=== PATIENT | male | born 2000 | race Caucasian/White ===

== ENCOUNTER 2019-02-23 17:56 | Inpatient (IN) | payer MEDICAID ==
[2019-02-23] MEDS: HYDROmorphONE 1 MG/ML SYG IV (19:04)
[2019-02-23] MEDS: ONDANSETRON 4 MG INJ IV (19:04)
[2019-02-23] MEDS: SOD CHLORIDE 0.9% 1,000 ML IV (19:04)
[2019-02-23 19:06] LABS: ADD MAN DIFF? NO
[2019-02-23 19:10] LABS: BASOPHILS % 0.1 % (0.0-2.0); EOSINOPHILS # 0.1 10^3/ul (0.0-0.5); EOSINOPHILS % 0.3 % (0.0-7.0); HEMATOCRIT 45.1 % (42.0-52.0); HEMOGLOBIN 14.5 g/dl (14.0-18.0); LYMPHOCYTES # 1.5 10^3/ul (0.8-2.9); LYMPHOCYTES % 10.5 % (18.0-55.0); MEAN CORPUSCULAR HEMOGLOBIN 27.8 pg (29.0-33.0); MEAN CORPUSCULAR HGB CONC 32.2 g/dl (32.0-37.0); MEAN CORPUSCULAR VOLUME 86.4 fl (72.0-104.0); MEAN PLATELET VOLUME 8.7 fl (7.4-10.4); MONOCYTES % 6.6 % (0.0-13.0); NEUTROPHIL # 11.7 10^3/ul (1.6-7.5); NEUTROPHILS % 82.2 % (30.0-74.0); PLATELET COUNT 393 10^3/UL (140-415); RED BLOOD COUNT 5.22 10^6/ul (4.70-6.10); RED CELL DISTRIBUTION WIDTH 12.4 % (11.5-14.5)
[2019-02-23 19:10] LABS: WHITE BLOOD COUNT 14.3 10^3/ul (4.8-10.8)
[2019-02-23 19:31] LABS: ALANINE AMINOTRANSFERASE 51 IU/L (13-69); ALBUMIN 4.7 g/dl (3.3-4.9); ALBUMIN/GLOBULIN RATIO 1.23; ALKALINE PHOSPHATASE 83 IU/L (42-121); ANION GAP 9 (5-13); ASPARTATE AMINO TRANSFERASE 26 IU/L (15-46); BILIRUBIN,INDIRECT 0.6 mg/dl (0-1.1); BILIRUBIN,TOTAL 0.6 mg/dl (0.2-1.3); BLOOD UREA NITROGEN 13 mg/dl (7-20); CALCIUM 10.1 mg/dl (8.4-10.2); CARBON DIOXIDE 32 mmol/L (21-31); CHLORIDE 99 mmol/L (97-110); CREATINE KINASE 70 IU/L (23-200); CREATININE 0.91 mg/dl (0.61-1.24); Estimated GFR > 60 mL/min (>60); GLUCOSE 95 mg/dl (70-220); MAGNESIUM 2.2 mg/dl (1.7-2.5); PHOSPHORUS 4.3 mg/dl (2.5-4.9); POTASSIUM 3.8 mmol/L (3.5-5.1); SODIUM 140 mmol/L (135-144); TOTAL PROTEIN 8.5 g/dl (6.1-8.1)
[2019-02-23 19:34] LABS: C-REACTIVE PROTEIN 1.3 mg/dl (0.0-0.9)
[2019-02-23 20:14] LABS: ERYTHROCYTE SEDIMENTATION RATE 30 mm/Hr (0-15)
[2019-02-23] MEDS ORDERED: ACETAMINOPHEN 325 MG TAB PO ×2 (22:00)
[2019-02-23] MEDS ORDERED: NACL 0.9% 3 ML SYG IV (22:00)
[2019-02-23] MEDS ORDERED: BISACODYL (EC) 5 MG TAB PO (22:00)
[2019-02-23] MEDS ORDERED: ONDANSETRON 4 MG INJ IV (22:00)
[2019-02-23] MEDS ORDERED: DOCUSATE SODIUM 100 MG CAP PO (22:00)
[2019-02-23 22:05] LABS: INR 0.96; PROTIME 12.9 Sec (11.9-14.9)
[2019-02-23 22:06] LABS: PARTIAL THROMBOPLASTIN TIME 31.3 Sec (23.0-35.0)
[2019-02-24] MEDS: SOD CHLORIDE 0.9% 1,000 ML IV ×2 (00:10→11:48)
[2019-02-24] MEDS: morphine 2 MG INJ IV (00:10)
[2019-02-24] MEDS: HYDROCODONE/APAP (5/325) TAB PO (00:26)
[2019-02-24 05:32] LABS: ADD MAN DIFF? NO
[2019-02-24 05:36] LABS: BASOPHILS % 0.1 % (0.0-2.0); EOSINOPHILS # 0.1 10^3/ul (0.0-0.5); EOSINOPHILS % 0.7 % (0.0-7.0); HEMATOCRIT 42.6 % (42.0-52.0); HEMOGLOBIN 13.8 g/dl (14.0-18.0); LYMPHOCYTES # 2.1 10^3/ul (0.8-2.9); LYMPHOCYTES % 15.7 % (18.0-55.0); MEAN CORPUSCULAR HEMOGLOBIN 28.2 pg (29.0-33.0); MEAN CORPUSCULAR HGB CONC 32.4 g/dl (32.0-37.0); MEAN CORPUSCULAR VOLUME 87.1 fl (72.0-104.0); MEAN PLATELET VOLUME 8.8 fl (7.4-10.4); MONOCYTE # 1.2 10^3/ul (0.3-0.9); NEUTROPHIL # 9.9 10^3/ul (1.6-7.5); PLATELET COUNT 347 10^3/UL (140-415); RED BLOOD COUNT 4.89 10^6/ul (4.70-6.10); RED CELL DISTRIBUTION WIDTH 12.3 % (11.5-14.5)
[2019-02-24 05:36] LABS: WHITE BLOOD COUNT 13.4 10^3/ul (4.8-10.8)
[2019-02-24 06:01] LABS: ALANINE AMINOTRANSFERASE 39 IU/L (13-69); ALBUMIN 3.7 g/dl (3.3-4.9); ALBUMIN/GLOBULIN RATIO 1.15; ALKALINE PHOSPHATASE 68 IU/L (42-121); ANION GAP 6 (5-13); ASPARTATE AMINO TRANSFERASE 21 IU/L (15-46); BILIRUBIN,INDIRECT 1.1 mg/dl (0-1.1); BILIRUBIN,TOTAL 1.1 mg/dl (0.2-1.3); BLOOD UREA NITROGEN 12 mg/dl (7-20); CALCIUM 9.3 mg/dl (8.4-10.2); CARBON DIOXIDE 30 mmol/L (21-31); CHLORIDE 101 mmol/L (97-110); CREATININE 0.84 mg/dl (0.61-1.24); Estimated GFR > 60 mL/min (>60); GLUCOSE 105 mg/dl (70-220); MAGNESIUM 2.2 mg/dl (1.7-2.5); POTASSIUM 4.3 mmol/L (3.5-5.1); SODIUM 137 mmol/L (135-144); TOTAL PROTEIN 6.9 g/dl (6.1-8.1)
[2019-02-24] MEDS: HYDROmorphONE 1 MG/ML SYG IV ×3 (07:50→22:48)
[2019-02-25] MEDS: HYDROCODONE/APAP (5/325) TAB PO (02:30)
[2019-02-25 06:12] LABS: ADD MAN DIFF? NO
[2019-02-25 06:21] LABS: WHITE BLOOD COUNT 11.2 10^3/ul (4.8-10.8)
[2019-02-25 06:21] LABS: BASOPHILS % 0.3 % (0.0-2.0); EOSINOPHILS # 0.1 10^3/ul (0.0-0.5); EOSINOPHILS % 1.2 % (0.0-7.0); HEMATOCRIT 45.1 % (42.0-52.0); HEMOGLOBIN 14.7 g/dl (14.0-18.0); LYMPHOCYTES # 1.6 10^3/ul (0.8-2.9); LYMPHOCYTES % 14.3 % (18.0-55.0); MEAN CORPUSCULAR HEMOGLOBIN 27.7 pg (29.0-33.0); MEAN CORPUSCULAR HGB CONC 32.6 g/dl (32.0-37.0); MEAN CORPUSCULAR VOLUME 84.9 fl (72.0-104.0); MONOCYTE # 0.9 10^3/ul (0.3-0.9); MONOCYTES % 7.6 % (0.0-13.0); NEUTROPHIL # 8.5 10^3/ul (1.6-7.5); NEUTROPHILS % 76.2 % (30.0-74.0); PLATELET COUNT 342 10^3/UL (140-415); RED BLOOD COUNT 5.31 10^6/ul (4.70-6.10); RED CELL DISTRIBUTION WIDTH 12.3 % (11.5-14.5)
[2019-02-25 06:57] LABS: ANION GAP 9 (5-13); BLOOD UREA NITROGEN 11 mg/dl (7-20); C-REACTIVE PROTEIN 7.1 mg/dl (0.0-0.9); CALCIUM 9.6 mg/dl (8.4-10.2); CARBON DIOXIDE 28 mmol/L (21-31); CHLORIDE 98 mmol/L (97-110); CREATININE 0.73 mg/dl (0.61-1.24); Estimated GFR > 60 mL/min (>60); GLUCOSE 100 mg/dl (70-220); POTASSIUM 4.1 mmol/L (3.5-5.1); SODIUM 135 mmol/L (135-144)
[2019-02-25 07:06] LABS: URIC ACID 5.9 mg/dl (3.1-7.9)
[2019-02-25 07:42] LABS: ERYTHROCYTE SEDIMENTATION RATE 27 mm/Hr (0-15)
[2019-02-25 07:47] LABS: PHOSPHORUS 3.8 mg/dl (2.5-4.9)
[2019-02-25 07:47] LABS: MAGNESIUM 2.3 mg/dl (1.7-2.5)
[2019-02-25] MEDS: HYDROmorphONE 1 MG/ML SYG IV ×2 (08:09→18:38)
[2019-02-25 08:16] LABS: COMPLEMENT C3 152 mg/dl (88-165)
[2019-02-25 08:16] LABS: COMPLEMENT C4 41 mg/dl (14-44)
[2019-02-25] MEDS: ONDANSETRON 4 MG INJ IV (09:31)
[2019-02-25 13:37] LABS: HIV 1&2 ANTIBODY NEGATIVE (NEGATIVE)
[2019-02-25 21:04] LABS: RHEUMATOID FACTOR NEGATIVE (NEGATIVE)
[2019-02-25] MEDS: KETOROLAC 15 MG INJ IV (21:05)
[2019-02-26] MEDS ORDERED: BUPIVACAINE 0.5%/EPI (SDV) 30 ML INJ INJ (06:00)
[2019-02-26 06:28] LABS: ADD MAN DIFF? NO
[2019-02-26 06:34] LABS: WHITE BLOOD COUNT 10.1 10^3/ul (4.8-10.8)
[2019-02-26 06:34] LABS: BASOPHILS % 0.2 % (0.0-2.0); EOSINOPHILS # 0.1 10^3/ul (0.0-0.5); EOSINOPHILS % 1.2 % (0.0-7.0); HEMATOCRIT 46.1 % (42.0-52.0); HEMOGLOBIN 15.1 g/dl (14.0-18.0); LYMPHOCYTES # 1.1 10^3/ul (0.8-2.9); MEAN CORPUSCULAR HGB CONC 32.8 g/dl (32.0-37.0); MEAN CORPUSCULAR VOLUME 85.4 fl (72.0-104.0); MEAN PLATELET VOLUME 9.1 fl (7.4-10.4); MONOCYTE # 0.9 10^3/ul (0.3-0.9); MONOCYTES % 9.1 % (0.0-13.0); NEUTROPHIL # 7.9 10^3/ul (1.6-7.5); PLATELET COUNT 370 10^3/UL (140-415)
[2019-02-26 07:00] LABS: ANION GAP 9 (5-13); BLOOD UREA NITROGEN 16 mg/dl (7-20); CALCIUM 9.8 mg/dl (8.4-10.2); CARBON DIOXIDE 29 mmol/L (21-31); CHLORIDE 96 mmol/L (97-110); CREATININE 0.88 mg/dl (0.61-1.24); Estimated GFR > 60 mL/min (>60); GLUCOSE 96 mg/dl (70-220); SODIUM 134 mmol/L (135-144)
[2019-02-26 07:12] LABS: PHOSPHORUS 3.8 mg/dl (2.5-4.9)
[2019-02-26 07:12] LABS: MAGNESIUM 2.2 mg/dl (1.7-2.5)
[2019-02-26] MEDS: KETOROLAC 15 MG INJ IV (11:27)
[2019-02-26] MEDS: BETAMET NA PHOS/AC(6 MG/ML) 5ML INJ INJ (22:30)
[2019-02-26] MEDS: BUPIVACAINE 0.5%/EPI (SDV) 10 ML INJ INJ (22:30)
[2019-02-27] MEDS: ALPRAZOLAM 1 MG TAB PO (02:36)
[2019-02-27 21:07] LABS: ANA SCREEN NEGATIVE (NEGATIVE); EBV NUCLEAR AG (EBNA) AB (IGG) >600.00 U/mL; EBV VIRAL CAPSID AG AB (IGM) <36.00 U/mL
== END 2019-02-27 14:50 | disposition home or self-care (01) | DRG 566 ==
LOC: E/R 17:56 → 2NE 21:41
DX: M25.452 Effusion, left hip (principal); M25.412 Effusion, left shoulder; D72.829 Elevated white blood cell count, unspecified; M25.511 Pain in right shoulder; M00.9 Pyogenic arthritis, unspecified; M65.89 Other synovitis and tenosynovitis, multiple sites
CPT/HCPCS: 36415; 73030; 73200; 73700; 73721; 76882-RT; 80048; 80053; 82550; 83735; 84100; 84560; 85025; 85610; 85651; 85730; 86038; 86140; 86160; 86430; 86664; 86703; 87040-91; 87070; 96374; 96375; 97161; 99285-25